=== PATIENT | male | born 1980 | race African-American/Black ===

== ENCOUNTER 2016-12-03 15:18 | Emergency (ER) | payer SELFPAY ==
[2016-12-03] MEDS: Lidocaine 1% 5ml(IM or SUTURE)(PAIN CLINIC) IJ ONE (15:55)
[2016-12-03] MEDS: AZITHROMYCIN 250 MG TABLET PO ONE (15:55)
[2016-12-03] MEDS: cefTRIAXone SODIUM 1 GM VIAL IM ONE (15:55)
[2016-12-03 16:13] VITALS: BP 120/68
--- NOTE | 2016-12-03 18:06 | ED Physician Documentation ---
Male Genitourinary Problems - HISTORIAN Historian: patient - HPI Stated Complaint: Deferred Chief Complaint: Male Genitourinary Problems Additional Information: cui to urinate and thick drainage Onset: days ago (2) Duration: continues in ED Context: denies: drug use, lifting, trauma, recent surgery Severity: moderate Further Comments: no - Associated Symptoms Problems Urinating: burning w/ urination Penile Discharge Descripiton: thick Testicular Pain: none Testicular Swelling: none Penile Pain: No Penile Swelling: No Inguinal Mass: No Flank Pain: none Abdominal Pain: none - Sexual History Sexual History: unprotected intercourse - ROS CONST: none GI/: denies: nausea, vomiting, abdominal pain, problems urinating MS/SKIN/LYMPH: none CVS/RESP: none EYES/ENT: none NEURO/PSYCH: denies: fainting, dizziness, tingling, numbness, anxiety, depression - PAST HX Past History: other (none) Cardiac Disease: none Surgeries/Procedures: none Immunizations: referred to PCP Allergies/Adverse Reactions: Allergies Allergy/AdvReac Type Severity Reaction Status Date / Time No Known Allergies Allergy Verified 01/08/16 00:02 Home Medications: Ambulatory Orders Medication Instructions Recorded NK [NK] 01/08/16 - SOCIAL HX Smoking History: cigarettes Alcohol Use: none Drug Use: none - FAMILY HX Family History: none - VITAL SIGNS Vital Signs: Vital Signs Temp Pulse Resp BP Pulse Ox 98.1 F 88 18 120/68 98 12/03/16 15:20 12/03/16 16:12 12/03/16 16:12 12/03/16 16:12 12/03/16 16:12 - REVIEWED ASSESSMENTS Nursing Assessment Reviewed: Yes Vitals Reviewed: Yes Progress - Results/Orders Results/Orders: no testing ordered - Progress Progress: pt. given 1 gram rocephin im and 1 gram zithromax p.o. in er Critical Care Note - Critical Care Note Total Time (mins): 0 ED Results Lab/Radiology - Lab Results Lab Results: none ordered - Radiology Radiology Impressions: none ordered - Orders Orders: ED Orders Category Date Time Status Azithromycin [Zithromax] Med 12/03/16 15:53 Discontinued 1,000 mg PO NOW ONE Lidocaine 1% 5ml(IM or SUTURE) [Xylocaine] Med 12/03/16 15:53 Discontinued 50 mg IJ NOW ONE cefTRIAXone SODIUM [Rocephin] Med 12/03/16 15:53 Discontinued 1 gm IM NOW ONE Male Genitourinary Problems - EXAM General Appearance: no acute distress, alert Abdomen: non-tender, no organomegaly Genitals: nml inspection, testicles nml palp.. No: urethral discharge, hernia mass, herpes-like lesion(s), inguinal lymphadenopathy EENT: eye inspection normal, ENT inspection normal, pharynx normal, no signs of dehydration, ADELA, no nystagmus, TM's nml Neck: nml inspection, meningismus Respiratory: no resp distress, chest non-tender, breath sounds normal CVS: reg rate & rhythm, heart sounds normal, equal pulses Back: non-tender, painless ROM Extremities: normal range of motion, non-tender, normal inspection, no pedal edema, no calf tenderness Neuro/Psych: oriented X3, CN's nml as tested, motor nml, sensation nml, mood/ affect nml, cognition normal Skin: warm/dry, normal color Discharge Clincal Impression: Sexually transmitted infection Referrals: Primary Doctor,No [Primary Care Provider] - 2 Days Home Medications: Ambulatory Orders NK [NK] 01/08/16 Comments: discharged after 1 gram rocephin im and 1 gram zithromax p.o. Condition: Stable Disposition: 01 HOME, SELF-CARE Decision to Admit: NO Decision Time: 06:00
== END 2016-12-03 16:12 | disposition home or self-care (01) ==
LOC: ED 15:18
DX: N48.29 Other inflammatory disorders of penis (principal)
CPT/HCPCS: 96372; 99283; J0696

== ENCOUNTER 2017-03-07 18:19 | Emergency (ER) | payer SELFPAY ==
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
[2017-03-07] MEDS ORDERED: KETOROLAC TROMETHAMINE 60 MG/2 ML VIAL ONE (19:55)
[2017-03-07] MEDS: KETOROLAC TROMETHAMINE 60 MG/2 ML VIAL IM ONE (20:00)
[2017-03-07 20:16] VITALS: BP 143/98
== END 2017-03-07 20:14 | disposition home or self-care (01) ==
LOC: ED 18:19
DX: S13.4XXA Sprain of ligaments of cervical spine, initial encounter (principal); V89.2XXA Person injured in unspecified motor-vehicle accident, traffic, initial encounter; Y93.9 Activity, unspecified; Y99.9 Unspecified external cause status
CPT/HCPCS: 72040; 72072; J1885; 96372; 99283